=== PATIENT | female | born 1960 | race Caucasian/White ===

== ENCOUNTER 2019-03-08 13:34 | Emergency (ER) | payer MEDICAID ==
[2019-03-08] MEDS: ONDANSETRON (ODT) 4 MG TAB ODT (15:15)
[2019-03-08] MEDS: HYDROCODONE/APAP (5/325) TAB PO (15:15)
== END 2019-03-08 16:01 | disposition home or self-care (01) ==
LOC: FTE 13:34
DX: S80.02XA Contusion of left knee, initial encounter (principal); W18.30XA Fall on same level, unspecified, initial encounter; Y92.9 Unspecified place or not applicable
CPT/HCPCS: 29505; 73562; 99283-25